=== PATIENT | female | born 1965 | race Caucasian/White ===

== ENCOUNTER 2019-07-01 07:50 | Day surgery (SDC) | payer OTHER ==
[~2019-07-01] VITALS: Ht 154.9 cm; Wt 57.6 kg
[~2019-07-01 07:50] MED LIST: ADVIL200 MG PO; MACROBID 100 M100 MG PO; PYRIDIUM200 MG PO; VITAMIN D1000 UNIT PO
[2019-07-01] MEDS ORDERED: LIPITOR20 MG PO (08:04)
--- NOTE | 2019-07-01 09:37 | NUR ---
07/01/19 0937 Tiffanie Oh 0918 PT ARRIVED IN PACU SLEEPY WITH NO C/O'S. ABD SOFT AND PASSING FLATUS. 0930 AWAKE SITTING UP IN BED SIPPING ON JUICE.
--- NOTE | 2019-07-01 14:22 | NUR ---
PT ALERT, ORIENTED AND SUPPORTED BY HER OSCAR. PT WAS RELAXED, HAD FEW QUESTIONS. OR STAFF IN TO TAKE PT TO SCOPE. GAVE BLESSING, WILL FOLLOW NEEDED
--- NOTE | 2019-07-01 16:58 | OR ---
[facility] [address], [place] [address] Signed DATE OF OPERATION: 07/01/2019 SURGEON: Ayse Baker MD PREOPERATIVE DIAGNOSIS: Personal history of colonic polyps (2012). POSTOPERATIVE DIAGNOSIS: 4 mm polyp at 22 cm. PROCEDURE: Colonoscopy with hot biopsy. ESTIMATED BLOOD LOSS: None. INDICATIONS: Emelia is a 53-year-old female who came to us in 2013 at age 47 for a colonoscopy. She had diarrhea and rectal bleeding at that time. We had removed an adenomatous polyp at 45 cm. No internal or external hemorrhoids at that time. Her rectal pain and diarrhea have since resolved. There is no family history of colon cancer or polyps. She now returns for followup colonoscopy. I reviewed colonoscopy with her along with the risks including, but not limited to gas, bloating, crampy abdominal pain, bleeding, perforation requiring surgery, and missed diagnosis. She recalls the need for IV conscious sedation. She expressed understanding and wished to proceed. PROCEDURE NOTE: Emelia was taken into our endoscopy suite and placed in the left lateral decubitus position. She was given a total of 7 mg of Versed and 125 mcg fentanyl to cover the case. A digital rectal exam was performed and this was unremarkable. Specifically, no external hemorrhoids. The adult colonoscope was introduced and advanced under direct visualization of camera. She had a little bit a buckling of the scope in her left colon, so we did use some extra sedation and some abdominal compression in order to advance the scope. After that, it went right into the cecum quite nicely. Her prep was quite good. We could easily see the appendiceal orifice and the ileocecal valve. The scope was slowly withdrawn. We took pictures throughout for photodocumentation. We did see just one little polyp at 22 cm. It was easily removed with a hot biopsy forceps. There was no diverticulosis. Upon retroflexion of scope, she really does not have anything significant in the way of internal hemorrhoid tissue. The gas was then suctioned out and the colonoscope removed. Emelia tolerated the procedure quite well. Electronically Signed By: AYSE BAKER MD 07/01/19 1658 PATIENT NAME: EMELIA KAPADIA DAT OPERATIVE REPORT DATE OF : 65 REPORT #: [id number] PHYSICIAN: AYSE BAKER MD PCP: KYM SINGER MD REPORT IS CONFIDENTIAL AND NOT TO BE RELEASED WITHOUT AUTHORIZATION [address] [address] Signed RECOMMENDATIONS: I will see Emelia back in my office in 7 to 14 days to review her results. She will stay on the 5-year rotation due to her personal history of colonic polyps. MD MONAE Mcnamara/BRONSON /[id number] cc: MD Bulmaro Mcnamara MD Andrea Carrasco, MD Copies: AYSE BAKER MD, MICHAEL JOHN MD ~ Electronically Signed By: AYSE BAKER MD 07/01/19 1658 PATIENT NAME: KAPADIAEMELIA DAT OPERATIVE REPORT DATE OF : 65 REPORT #: [id number] PHYSICIAN: AYSE BAKER MD PCP: KYM SINGER MD REPORT IS CONFIDENTIAL AND NOT TO BE RELEASED WITHOUT AUTHORIZATION
--- NOTE | 2019-07-02 16:20 | PATH ---
[facility] [address] [place], [place] [address] Signed SPECIMEN(S): A DISTAL COLON POLYP AT 22 CM SPECIMEN SOURCE: A. DISTAL COLON POLYP AT 22 CM CLINICAL HISTORY: Hx polyps. Postop: Polyp. MICROSCOPIC DESCRIPTION: Histologic sections of all submitted blocks are examined by light microscopy. These findings, together with the gross examination, support the pathologic diagnosis. FINAL PATHOLOGIC DIAGNOSIS: Colon, distal, polyp at 22 cm, polypectomy: - Tubular adenoma with cautery artifact. - Negative for high-grade dysplasia or malignancy. NAL:glc:C2NR GROSS DESCRIPTION: The specimen, labeled "CF, distal colon polyp at 22 cm," is received in formalin and consists of two, 0.3 and 0.4 cm osborne tissue fragments. Specimen is entirely submitted in cassette (A1). AM (under the direct supervision of a pathologist) The Gross Description was prepared using a voice recognition system. The report was reviewed for accuracy; however, sound-alike word errors, addition and/or deletions may occur. If there is any question about this report, please contact Client Services. PERFORMING LABORATORY: The technical component was performed by [email or web address], [address] [place] [id number] (Civil Service Clerk: Lexi Chou MD; CLIA# [id number]). [email or web address] [address] [address] (Civil Service Clerk: Giovanny Montanez MD; CLIA# [id number]). Diagnostician: Melina Henley MD Pathologist Electronically Signed 07/02/2019 PATIENT NAME: ARIANNA KAPADIA PATHOLOGY DATE OF : 65 REPORT #: [id number] PHYSICIAN: [facility] PCP: KYM SINGER MD REPORT IS CONFIDENTIAL AND NOT TO BE RELEASED WITHOUT AUTHORIZATION [address] [address] Signed Copies: ~ PATIENT NAME: ARIANNA KAPADIA PATHOLOGY DATE OF : 65 REPORT #: [id number] PHYSICIAN: [facility] PCP: KYM SINGER MD REPORT IS CONFIDENTIAL AND NOT TO BE RELEASED WITHOUT AUTHORIZATION
== END 2019-07-01 09:48 | disposition home or self-care (01) ==
LOC: OPS 07:50 → DS 08:02 → OPS 09:00 → DS 09:00 → OPS 09:48
PROVIDERS: Colon & Rectal Surgery
PROC: 0DBE8ZZ Excision of Large Intestine, Via Natural or Artificial Opening Endoscopic (ICD-10-PCS; principal; 2019-07-01 09:00)
DX: Z12.11 Encounter for screening for malignant neoplasm of colon (principal); D12.6 Benign neoplasm of colon, unspecified; Z86.010 Personal history of colon polyps; Z98.890 Other specified postprocedural states; Z79.899 Other long term (current) drug therapy
CPT/HCPCS: 99153; G0500; J2250; J3010; J7121